=== PATIENT | female | born 1995 | race Native Hawaiian/Other Pacific Islander ===

== ENCOUNTER 2021-09-08 16:52 | Inpatient (IN) | payer OTHER, MEDICAID ==
[2021-09-08] MEDS ORDERED: ONDANSETRON 4 MG/2 ML INJ IV PRN (17:36)
[2021-09-08] MEDS ORDERED: DINOPROSTONE 10 MG VAG SUPP VG ONE ×2 (17:36→22:00)
[2021-09-08] MEDS ORDERED: LIDOCAINE (2%) 20 MG/1 ML VIAL 20 ML MDV INFILTRATI ONE (17:36)
[2021-09-08] MEDS ORDERED: ePHEDrine SULFATE 50 MG/1 ML INJ IV PRN (17:36)
[2021-09-08] MEDS ORDERED: AMPICILLIN/NS 2 GM/100 ML 2 GM/100 ML BAG IV ONE (17:36)
[2021-09-08] MEDS ORDERED: miSOPROStol 200 MCG TAB PR PRN (17:36)
[2021-09-08] MEDS ORDERED: METHYLERGONOVINE MALEATE 0.2 MG/ML VIAL IM PRN (17:36)
[2021-09-08] MEDS ORDERED: BUTORPHANOL 2 MG/1 ML INJ IV PRN (17:36)
[2021-09-08] MEDS ORDERED: ACETAMINOPHEN 325 MG TAB PO PRN (17:36)
[2021-09-08] MEDS ORDERED: TERBUTALINE 1 MG/1 ML INJ SUB-Q PRN (17:36)
[2021-09-08] MEDS ORDERED: CARBOPROST TROMETHAMINE 250 MCG/1 ML INJ IM PRN (17:36)
[2021-09-08] MEDS ORDERED: MINERAL OIL 30 ML ORAL LIQD PO PRN (17:36)
[2021-09-08] MEDS ORDERED: OXYTOCIN 10 UNIT/1 ML INJ IM PRN (17:36)
[2021-09-08] MEDS ORDERED: LOPERAMIDE 2 MG CAP PO PRN (17:36)
--- NOTE | 2021-09-08 17:42 | History and Physical Report ---
History of Present Illness Date of examination: 09/08/21 Date of admission: 09/08/21 16:52 Chief complaint: Pt sent to [facility] for IOL by HOLLY d/t CHARLENE History of present illness: EDC Calculations by LMP: 09/12/2021 Past History : 2 Term Births: 1 Premature Births: 0 Living Children: 1 Para: 1 Mult. Births: 0 Prev : 0 Aborta: 0 Elect. Ab: 0 Spont. Ab: 0 Ectopics: 0 # 1 Delivery date: 02/07/2012 Weeks Gestation: 38 Delivery type: Vaginal Hours of labor: 12 Anesthesia type: epidural Delivery location: [facility] Infant Sex: male weight: 6.25 Name: Dedra Past Medical History: Reviewed history from 10/23/2011 and no changes required: Neurologic Disorder Spina Bifida Occulta Past Surgical History: Reviewed history from 10/23/2011 and no changes required: Negative Past Surgical History Family History Summary: Other Family Member - Has No Family History of Colon Cancer - Entered On: 06/05 Other Family Member - Has Family History of Diabetes - Entered On: 06/23/2021 Other Family Member - Has Family History Breast Cancer - Entered On: 06/23/2021 General Comments - FH: Family History Breast Cancer Family History of Cervical Cancer Family History of Coronary Heart Disease Family History of Colon Cancer Family History of Diabetes Family History of CVA or Stroke Family History of Hypertension No Family History of Ovarvian Cancer No Family History of DVT/PE on OCP Social History: Marital Status: Single Children: 1 Occupation: [employer] Smoking History: Patient has never smoked. 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 Infection History Hx of STD: chlamydia HIV Risk Eval: low risk Hepatitis B Risk Eval: low risk Personal hx. of genital herpes: no Genetic History Congenital Heart Defect: Mom: no Dad: no Cecilia Disease: Mom: no Dad: no Thalassemia Mom: no Dad: no Neural Tube Defect Mom: yes Dad: no Down's Syndrome Mom: no Dad: no Juan-Sachs Mom: no Dad: no Sickle Cell Disease/Trait Mom: no Dad: yes Comments: FOB trat Hemophilia Mom: no Dad: no Muscular Dystrophy Mom: no Dad: no Cystic Fibrosis Mom: no Dad: no Eure Chorea Mom: no Dad: no Mental Retardation Mom: no Dad: no Fragile X Mom: no Dad: no Other Genetic/Chromosomal Disorder Mom: no Dad: no Child w/other defect Mom: no Dad: no Enviromental Exposures Xray Exposure: no Medication, drug, or alcohol use since LMP: yes Chemical/Other Exposure: no Exposure to Cat Liter: no Active Medications (reviewed today): folic acid unspecified unspecified (folic acid) VITAMINS () Current Allergies (reviewed today): No known allergies Past History Past Medical History: other (see HPI) Past Surgical History: other (see HPI) METAPHYSICIAN History: other (see HPI) Family/Genetic History: other (see HPI) - Obstetrical History Expected Date of Delivery: 09/12/21 Actual Gestation: 39 Week(s) 3 Day(s) : 2 Para: 1 Hx # Term Pregnancies: 1 Number of Pregnancies: 0 Spontaneous Abortions: 0 Induced : 0 Number of Living Children: 1 Medications and Allergies Allergies Allergy/AdvReac Type Severity Reaction Status Date / Time No Known Allergies Allergy Unverified 09/08/21 18:20 Active Meds: Active Medications Acetaminophen (Acetaminophen 325 Mg Tab) 650 mg PO Q4H PRN PRN Reason: Pain, Mild (1-3) Butorphanol Tartrate (Butorphanol 2 Mg/1 Ml Inj) 1 mg IV Q2H PRN PRN Reason: Pain, Moderate(4-6) LABOR PAIN Carboprost Tromethamine (Carboprost Tromethamine 250 Mcg/1 Ml Inj) 250 mcg IM ONCE PRN PRN Reason: Uterine Bleeding Dinoprostone (Dinoprostone 10 Mg Vag Supp) 10 mg VG ONCE ONE Stop: 09/08/21 17:37 Ephedrine Sulfate (Ephedrine Sulfate 50 Mg/1 Ml Inj) 10 mg IV Q2M PRN PRN Reason: Hypotension Oxytocin/Sodium Chloride (Pitocin/Ns 30 Unit/500ml) 30 units in 500 mls @ 2 mls/hr IV TITR PONCHO; Protocol Lactated Ringer's (Lactated Ringers) 1,000 mls @ 125 mls/hr IV DIRECT PONCHO Oxytocin/Sodium Chloride (Pitocin/Ns 30 Unit/500ml) 30 units in 500 mls @ 40 mls/hr IV TITR PONCHO; Protocol Ampicillin Sodium (Ampicillin/Ns 2 Gm/100 Ml) 2 gm in 100 mls @ 100 mls/hr IV ONCE ONE; Protocol Stop: 09/08/21 18:35 Loperamide HCl (Loperamide 2 Mg Cap) 2 mg PO ONCE PRN PRN Reason: give with Hemabate Methylergonovine Maleate (Methylergonovine Maleate 0.2 Mg/Ml Vial) 0.2 mg IM ONCE PRN PRN Reason: Uterine Bleeding Mineral Oil (Mineral Oil 30 Ml Oral Liqd) 30 ml PO QHS PRN PRN Reason: Constipation Misoprostol (Misoprostol 200 Mcg Tab) 800 mcg MI ONCE PRN PRN Reason: Uterine Bleeding Ondansetron HCl (Ondansetron 4 Mg/2 Ml Inj) 4 mg IV Q8H PRN PRN Reason: Nausea And Vomiting Oxytocin (Oxytocin 10 Unit/1 Ml Inj) 10 unit IM ONCE PRN PRN Reason: Uterine Bleeding Terbutaline Sulfate (Terbutaline 1 Mg/1 Ml Inj) 0.25 mg SUB-Q ONCE PRN PRN Reason: Hyperstimulation/Hypertonicity Review of Systems All systems: negative - Vital Signs Vital signs: Vital Signs Pulse BP Pulse Ox 96 H 147/77 99 09/08/21 17:36 09/08/21 17:36 09/08/21 17:36 Temp Pulse Resp BP Pulse Ox 96 H 147/77 99 09/08/21 17:36 09/08/21 17:36 09/08/21 17:36 - Physical Exam Breasts: Positive: normal Cardiovascular: Regular rate Lungs: Positive: Normal air movement Abdomen: Positive: normal appearance, soft Genitourinary (Female): Positive: normal external genitalia, normal perenium Vagina: Positive: normal moisture Uterus: Positive: normal size, normal contour Anus/Rectum: Positive: normal perianal skin Extremities: Positive: edema Deep Tendon Reflex Grade: Normal +2 - Obstetrical FHR: category 1 Uterine Contraction Monitor Mode: External Cervical Dilatation: 2 (Anterior) Cervical Effacement Percentage: 30 station: -2 Uterine Contraction Pattern: Irregular Uterine Tone Measurement Phase: Contraction Uterine Contraction Intensity: Mild Results Result Diagrams: 09/08/21 Unknown All other labs normal. Assessment and Plan 26y/o Admitted for IOL d/t GHTN dx'd by [facility]. complicated by morbid obesity. GBS +. Admission orders in EMR. Pt denies CLEARY, visual changes, epigastric pain. Plan discussed for cervidil tonight followed by pitocin tomorrow. all questions addressed. - Patient Problems (1) GBS (group B Streptococcus carrier), +RV culture, currently Current Visit: Yes Status: Acute (2) Gestational HTN Current Visit: Yes Status: Acute Qualifiers: Trimester: third trimester Qualified Code(s): O13.3 - Gestational [-induced] hypertension without significant proteinuria, third tr imester Plan to address problem: b/p's NL since admission no s/s pre-e PIH labs ordered. Will continue to monitor VS and s/s pre-e closely. (3) 39 weeks gestation of Current Visit: Yes Status: Acute (4) Rh negative status during Current Visit: Yes Status: Acute Qualifiers: Trimester: third trimester Qualified Code(s): O26.893 - Other specified related conditions, third trimester; Z67.91 - Unspecified blood type, Rh negative Plan to address problem: rh work up
[2021-09-08] MEDS ORDERED: OXYTOCIN DRIP 30 UNITS/500 ML BAG IV SCH ×2 (18:00)
[2021-09-08 19:40] LABS: Hematocrit 33.2 % (30.3-42.9); Hemoglobin 10.7 gm/dl (10.1-14.3); Mean Corpuscular HGB Conc 32 % (30-34); Mean Corpuscular Volume 78 fl (79-97); Platelet Count 223 K/mm3 (140-440); Red Blood Count 4.25 M/mm3 (3.65-5.03)
[2021-09-08] MEDS ORDERED: AMPICILLIN/NS 1 GM/50 ML 1 GM/50 ML BAG IV SCH (22:00)
[2021-09-09 01:11] LABS: Alanine Aminotransferase 10 units/L (7-56)
[2021-09-09 02:04] LABS: Uric Acid 5.2 mg/dL (3.5-7.6)
--- NOTE | 2021-09-09 07:27 | Progress Note ---
Assessment and Plan A: 26 y.o. @ 40 wks, IOL d/t gHTN. - Patient Problems (1) 39 weeks gestation of Current Visit: Yes Status: Acute Plan to address problem: Continue to monitor status through EFM. (2) GBS (group B Streptococcus carrier), +RV culture, currently Current Visit: Yes Status: Acute Plan to address problem: Antibiotics when in more active labor. (3) Gestational HTN Current Visit: Yes Status: Acute Qualifiers: Trimester: third trimester Qualified Code(s): O13.3 - Gestational [-induced] hypertension without significant proteinuria, third trimester Plan to address problem: Cervidil to be removed ~ 1130am. - May remove sooner based off progress. Continue to monitor blood pressures. Continue to monitor for s/sx of Pre-eclampsia. (4) Rh negative status during Current Visit: Yes Status: Acute Qualifiers: Trimester: third trimester Qualified Code(s): O26.893 - Other specified related conditions, third trimester; Z67.91 - Unspecified blood type, Rh negative Plan to address problem: Cord blood work up post delivery. Subjective - Subjective Date of service: 09/09/21 Principal diagnosis: IUP @ 40 wks d/t gHTN Interval history: Pt denies CLEARY. blurred vision, spots before your eyes, chest pain, upper abdominal pain, and shortness of breath. Patient reports: movement normal, no new complaints, no loss of fluid, no vaginal bleeding, no contractions Objective - Vital Signs Vital Signs: Vital Signs - 12hr 09/08/21 09/08/21 09/08/21 19:31 19:34 19:36 Temperature Pulse Rate 91 H 96 H 97 H Respiratory Rate Blood Pressure 128/76 O2 Sat by Pulse 96 90 97 Oximetry 09/08/21 09/08/21 09/08/21 19:41 19:46 19:50 Temperature Pulse Rate 97 H 101 H 96 H Respiratory Rate Blood Pressure 120/69 O2 Sat by Pulse 97 98 94 Oximetry 09/08/21 09/08/21 09/08/21 19:51 19:56 20:01 Temperature Pulse Rate 95 H 98 H 91 H Respiratory Rate Blood Pressure O2 Sat by Pulse 98 98 98 Oximetry 09/08/21 09/08/21 09/08/21 20:04 20:06 20:11 Temperature Pulse Rate 106 H 107 H 102 H Respiratory Rate Blood Pressure 120/70 O2 Sat by Pulse 88 98 98 Oximetry 09/08/21 09/08/21 09/08/21 20:16 20:19 20:21 Temperature Pulse Rate 100 H 100 H 95 H Respiratory Rate Blood Pressure 123/75 O2 Sat by Pulse 96 94 98 Oximetry 09/08/21 09/08/21 09/08/21 20:26 20:31 20:34 Temperature Pulse Rate 99 H 90 101 H Respiratory Rate Blood Pressure 123/72 O2 Sat by Pulse 98 98 91 Oximetry 09/08/21 09/08/21 09/08/21 20:36 20:41 20:46 Temperature Pulse Rate 110 H 106 H 100 H Respiratory Rate Blood Pressure O2 Sat by Pulse 97 97 97 Oximetry 09/08/21 09/08/21 09/08/21 20:49 20:51 20:56 Temperature Pulse Rate 101 H 105 H 112 H Respiratory Rate Blood Pressure 130/78 O2 Sat by Pulse 93 98 97 Oximetry 09/08/21 09/08/21 09/08/21 21:01 21:04 21:06 Temperature Pulse Rate 107 H 94 H 96 H Respiratory Rate Blood Pressure 129/79 O2 Sat by Pulse 98 92 97 Oximetry 09/08/21 09/08/21 09/08/21 21:11 21:16 21:19 Temperature Pulse Rate 110 H 111 H 101 H Respiratory Rate Blood Pressure 130/74 O2 Sat by Pulse 98 98 94 Oximetry 09/08/21 09/08/21 09/08/21 21:21 21:26 21:27 Temperature Pulse Rate 95 H 94 H Respiratory 18 Rate Blood Pressure O2 Sat by Pulse 98 98 Oximetry 09/08/21 09/08/21 09/08/21 21:31 21:40 21:45 Temperature Pulse Rate 101 H 124 H 101 H Respiratory Rate Blood Pressure O2 Sat by Pulse 98 99 98 Oximetry 09/08/21 09/08/21 09/08/21 21:49 21:50 21:55 Temperature Pulse Rate 89 100 H 106 H Respiratory Rate Blood Pressure 137/71 O2 Sat by Pulse 90 97 97 Oximetry 09/08/21 09/08/21 09/08/21 22:00 22:04 22:05 Temperature Pulse Rate 96 H 95 H 85 Respiratory Rate Blood Pressure 137/67 O2 Sat by Pulse 98 92 94 Oximetry 09/08/21 09/08/21 09/08/21 22:10 22:15 22:19 Temperature Pulse Rate 95 H 100 H 102 H Respiratory Rate Blood Pressure 149/60 O2 Sat by Pulse 97 97 Oximetry 09/08/21 09/08/21 09/08/21 22:20 22:25 22:30 Temperature Pulse Rate 93 H 107 H 109 H Respiratory Rate Blood Pressure O2 Sat by Pulse 97 97 97 Oximetry 09/08/21 09/08/21 09/08/21 22:34 22:35 22:40 Temperature Pulse Rate 102 H 100 H 102 H Respiratory Rate Blood Pressure O2 Sat by Pulse 90 97 98 Oximetry 09/08/21 09/08/21 09/08/21 22:45 22:50 22:55 Temperature Pulse Rate 93 H 97 H 98 H Respiratory Rate Blood Pressure O2 Sat by Pulse 99 98 98 Oximetry 09/08/21 09/08/21 09/08/21 23:00 23:05 23:10 Temperature Pulse Rate 103 H 92 H 94 H Respiratory Rate Blood Pressure O2 Sat by Pulse 98 97 98 Oximetry 09/08/21 09/08/21 09/08/21 23:15 23:20 23:25 Temperature Pulse Rate 91 H 96 H 90 Respiratory Rate Blood Pressure O2 Sat by Pulse 98 99 99 Oximetry 09/08/21 09/08/21 09/08/21 23:30 23:35 23:40 Temperature Pulse Rate 90 90 91 H Respiratory Rate Blood Pressure O2 Sat by Pulse 99 99 97 Oximetry 09/08/21 09/08/21 09/08/21 23:45 23:50 23:55 Temperature Pulse Rate 88 89 92 H Respiratory Rate Blood Pressure O2 Sat by Pulse 97 97 96 Oximetry 09/09/21 09/09/21 09/09/21 00:00 00:05 00:08 Temperature Pulse Rate 86 90 90 Respiratory Rate Blood Pressure O2 Sat by Pulse 97 98 88 Oximetry 09/09/21 09/09/21 09/09/21 00:09 00:10 00:15 Temperature 98 F Pulse Rate 89 88 87 Respiratory 18 Rate Blood Pressure 109/55 O2 Sat by Pulse 97 98 Oximetry 09/09/21 09/09/21 09/09/21 00:20 00:25 00:30 Temperature Pulse Rate 85 83 85 Respiratory Rate Blood Pressure O2 Sat by Pulse 97 97 96 Oximetry 09/09/21 09/09/21 09/09/21 00:35 00:40 00:45 Temperature Pulse Rate 85 85 85 Respiratory Rate Blood Pressure O2 Sat by Pulse 97 97 97 Oximetry 09/09/21 09/09/21 09/09/21 00:50 00:55 01:00 Temperature Pulse Rate 85 85 85 Respiratory Rate Blood Pressure O2 Sat by Pulse 98 97 98 Oximetry 09/09/21 09/09/21 09/09/21 01:05 01:08 01:10 Temperature Pulse Rate 85 92 H 83 Respiratory Rate Blood Pressure 117/56 O2 Sat by Pulse 97 98 Oximetry 09/09/21 09/09/21 09/09/21 01:15 01:20 01:25 Temperature Pulse Rate 82 88 84 Respiratory Rate Blood Pressure O2 Sat by Pulse 99 97 96 Oximetry 09/09/21 09/09/21 09/09/21 01:29 01:30 01:35 Temperature Pulse Rate 82 90 86 Respiratory Rate Blood Pressure O2 Sat by Pulse 94 97 96 Oximetry 09/09/21 09/09/21 09/09/21 01:40 01:45 01:50 Temperature Pulse Rate 82 79 79 Respiratory Rate Blood Pressure O2 Sat by Pulse 96 96 99 Oximetry 09/09/21 09/09/21 09/09/21 01:55 02:00 02:05 Temperature Pulse Rate 82 82 84 Respiratory Rate Blood Pressure O2 Sat by Pulse 98 98 97 Oximetry 09/09/21 09/09/21 09/09/21 02:08 02:10 02:15 Temperature Pulse Rate 78 81 89 Respiratory Rate Blood Pressure 103/55 O2 Sat by Pulse 94 97 98 Oximetry 09/09/21 09/09/21 09/09/21 02:20 02:25 02:30 Temperature Pulse Rate 85 86 90 Respiratory Rate Blood Pressure O2 Sat by Pulse 97 98 99 Oximetry 09/09/21 09/09/21 09/09/21 02:35 02:40 02:45 Temperature Pulse Rate 81 80 83 Respiratory Rate Blood Pressure O2 Sat by Pulse 98 99 98 Oximetry 09/09/21 09/09/21 09/09/21 02:50 02:55 03:00 Temperature Pulse Rate 82 81 77 Respiratory Rate Blood Pressure O2 Sat by Pulse 98 98 98 Oximetry 09/09/21 09/09/21 09/09/21 03:05 03:10 03:15 Temperature Pulse Rate 83 73 83 Respiratory Rate Blood Pressure O2 Sat by Pulse 97 96 97 Oximetry 09/09/21 09/09/21 09/09/21 03:20 03:26 03:30 Temperature Pulse Rate 77 79 79 Respiratory Rate Blood Pressure O2 Sat by Pulse 98 97 97 Oximetry 09/09/21 09/09/21 09/09/21 03:36 03:40 03:46 Temperature Pulse Rate 83 72 73 Respiratory Rate Blood Pressure O2 Sat by Pulse 99 97 97 Oximetry 09/09/21 09/09/21 09/09/21 03:47 03:51 03:55 Temperature Pulse Rate 77 83 78 Respiratory Rate Blood Pressure O2 Sat by Pulse 94 96 98 Oximetry 09/09/21 09/09/21 09/09/21 04:00 04:05 04:10 Temperature Pulse Rate 88 79 85 Respiratory Rate Blood Pressure 114/55 O2 Sat by Pulse 98 98 Oximetry 09/09/21 09/09/21 09/09/21 04:11 04:15 04:21 Temperature 98.8 F Pulse Rate 83 74 80 Respiratory 18 Rate Blood Pressure O2 Sat by Pulse 98 98 98 Oximetry 09/09/21 09/09/21 09/09/21 04:25 04:30 04:36 Temperature Pulse Rate 78 79 78 Respiratory Rate Blood Pressure O2 Sat by Pulse 99 98 98 Oximetry 09/09/21 09/09/21 09/09/21 04:40 04:46 04:50 Temperature Pulse Rate 85 85 77 Respiratory Rate Blood Pressure O2 Sat by Pulse 99 99 98 Oximetry 09/09/21 09/09/21 09/09/21 04:55 05:00 05:06 Temperature Pulse Rate 85 76 79 Respiratory Rate Blood Pressure O2 Sat by Pulse 97 98 99 Oximetry 09/09/21 09/09/21 09/09/21 05:08 05:11 05:33 Temperature Pulse Rate 78 74 85 Respiratory Rate Blood Pressure 108/58 O2 Sat by Pulse 98 99 Oximetry 09/09/21 09/09/21 09/09/21 05:38 05:43 05:48 Temperature Pulse Rate 84 89 81 Respiratory Rate Blood Pressure O2 Sat by Pulse 98 98 99 Oximetry 09/09/21 09/09/21 09/09/21 05:53 05:58 06:03 Temperature Pulse Rate 88 84 81 Respiratory Rate Blood Pressure O2 Sat by Pulse 98 98 97 Oximetry 09/09/21 09/09/21 09/09/21 06:08 06:12 06:13 Temperature Pulse Rate 83 76 81 Respiratory Rate Blood Pressure 125/74 O2 Sat by Pulse 97 94 97 Oximetry 09/09/21 09/09/21 09/09/21 06:18 06:22 06:25 Temperature Pulse Rate 81 84 79 Respiratory Rate Blood Pressure O2 Sat by Pulse 94 96 94 Oximetry 09/09/21 09/09/21 09/09/21 06:27 06:32 06:33 Temperature Pulse Rate 82 77 73 Respiratory Rate Blood Pressure O2 Sat by Pulse 94 96 94 Oximetry 09/09/21 09/09/21 09/09/21 06:37 06:43 06:47 Temperature Pulse Rate 77 78 78 Respiratory Rate Blood Pressure O2 Sat by Pulse 97 95 96 Oximetry 09/09/21 09/09/21 09/09/21 06:53 06:55 06:57 Temperature Pulse Rate 76 81 79 Respiratory Rate Blood Pressure O2 Sat by Pulse 97 94 96 Oximetry 09/09/21 09/09/21 09/09/21 07:02 07:07 07:08 Temperature Pulse Rate 77 86 83 Respiratory Rate Blood Pressure 112/68 O2 Sat by Pulse 98 98 Oximetry 09/09/21 09/09/21 09/09/21 07:12 07:17 07:22 Temperature Pulse Rate 84 79 75 Respiratory Rate Blood Pressure O2 Sat by Pulse 99 98 98 Oximetry - Exam Cardiovascular: Regular rate Lungs: Normal air movement Abdomen: Present: normal appearance, soft Uterus: Present: normal FHR: category 1 Uterine Contraction Monitor Mode: External Uterine Contraction Pattern: Absent - Labs Labs: Abnormal Labs 09/08/21 Unknown WBC 11.1 H MCV 78 L MCH 25 L Laboratory Results - last 24 hr 09/08/21 09/08/21 09/08/21 23:25 23:25 Unknown WBC 11.1 H RBC 4.25 Hgb 10.7 Hct 33.2 MCV 78 L MCH 25 L MCHC 32 RDW 15.0 Plt Count 223 Creatinine 0.6 Estimated GFR > 60 Uric Acid 5.2 AST 10 ALT 10 Lactate Dehydrogenase 137 Syphilis IgG/IgM Ab Nonreactive Blood Type Antibody Screen 09/08/21 Unknown WBC RBC Hgb Hct MCV MCH MCHC RDW Plt Count Creatinine Estimated GFR Uric Acid AST ALT Lactate Dehydrogenase Syphilis IgG/IgM Ab Blood Type O NEGATIVE Antibody Screen Negative
[2021-09-09] MEDS ORDERED: DINOPROSTONE 10 MG VAG SUPP VG ONE (18:41)
--- NOTE | 2021-09-09 18:43 | Progress Note ---
Assessment and Plan - Patient Problems (1) 39 weeks gestation of Current Visit: Yes Status: Acute (2) GBS (group B Streptococcus carrier), +RV culture, currently Current Visit: Yes Status: Acute (3) Gestational HTN Current Visit: Yes Status: Acute Qualifiers: Trimester: third trimester Qualified Code(s): O13.3 - Gestational [-induced] hypertension without significant proteinuria, third trimester Plan to address problem: Allow pm care if FHT's cat 1 and cervidil (4) Rh negative status during Current Visit: Yes Status: Acute Qualifiers: Trimester: third trimester Qualified Code(s): O26.893 - Other specified related conditions, third trimester; Z67.91 - Unspecified blood type, Rh negative Subjective - Subjective Date of service: 09/09/21 Principal diagnosis: IUP @ 39 4/7 wks d/t gHTN Patient reports: movement normal, no new complaints, no loss of fluid, no vaginal bleeding, no contractions Objective - Vital Signs Vital Signs: Vital Signs - 12hr 09/09/21 09/09/21 09/09/21 06:43 06:47 06:53 Temperature Pulse Rate 78 78 76 Respiratory Rate Blood Pressure Blood Pressure [Left] O2 Sat by Pulse 95 96 97 Oximetry 09/09/21 09/09/21 09/09/21 06:55 06:57 07:02 Temperature Pulse Rate 81 79 77 Respiratory Rate Blood Pressure Blood Pressure [Left] O2 Sat by Pulse 94 96 98 Oximetry 09/09/21 09/09/21 09/09/21 07:07 07:08 07:12 Temperature Pulse Rate 86 83 84 Respiratory Rate Blood Pressure 112/68 Blood Pressure [Left] O2 Sat by Pulse 98 99 Oximetry 09/09/21 09/09/21 09/09/21 07:17 07:22 07:27 Temperature Pulse Rate 79 75 77 Respiratory Rate Blood Pressure Blood Pressure [Left] O2 Sat by Pulse 98 98 98 Oximetry 09/09/21 09/09/21 09/09/21 07:32 07:37 07:42 Temperature Pulse Rate 80 77 78 Respiratory Rate Blood Pressure Blood Pressure [Left] O2 Sat by Pulse 99 98 99 Oximetry 09/09/21 09/09/21 09/09/21 07:48 07:52 07:57 Temperature Pulse Rate 72 71 74 Respiratory Rate Blood Pressure Blood Pressure [Left] O2 Sat by Pulse 99 98 98 Oximetry 09/09/21 09/09/21 09/09/21 08:02 08:07 08:08 Temperature Pulse Rate 83 69 74 Respiratory Rate Blood Pressure 115/61 Blood Pressure [Left] O2 Sat by Pulse 98 96 Oximetry 09/09/21 09/09/21 09/09/21 08:12 08:17 08:22 Temperature Pulse Rate 73 76 72 Respiratory Rate Blood Pressure Blood Pressure [Left] O2 Sat by Pulse 97 97 97 Oximetry 09/09/21 09/09/21 09/09/21 08:28 08:32 08:38 Temperature Pulse Rate 67 82 73 Respiratory Rate Blood Pressure Blood Pressure [Left] O2 Sat by Pulse 96 98 97 Oximetry 09/09/21 09/09/21 09/09/21 08:42 08:47 08:53 Temperature Pulse Rate 71 74 77 Respiratory Rate Blood Pressure Blood Pressure [Left] O2 Sat by Pulse 98 98 98 Oximetry 09/09/21 09/09/21 09/09/21 08:58 09:03 09:07 Temperature Pulse Rate 74 77 76 Respiratory Rate Blood Pressure Blood Pressure [Left] O2 Sat by Pulse 98 98 96 Oximetry 09/09/21 09/09/21 09/09/21 09:08 09:13 09:18 Temperature Pulse Rate 85 77 75 Respiratory Rate Blood Pressure 112/61 Blood Pressure [Left] O2 Sat by Pulse 98 98 Oximetry 09/09/21 09/09/21 09/09/21 09:23 09:28 09:33 Temperature Pulse Rate 77 82 72 Respiratory Rate Blood Pressure Blood Pressure [Left] O2 Sat by Pulse 98 98 98 Oximetry 09/09/21 09/09/21 09/09/21 09:38 09:43 09:48 Temperature Pulse Rate 80 74 65 Respiratory Rate Blood Pressure Blood Pressure [Left] O2 Sat by Pulse 96 98 99 Oximetry 09/09/21 09/09/21 09/09/21 09:53 09:58 10:02 Temperature Pulse Rate 73 73 65 Respiratory Rate Blood Pressure Blood Pressure [Left] O2 Sat by Pulse 99 100 98 Oximetry 09/09/21 09/09/21 09/09/21 10:08 10:13 10:18 Temperature Pulse Rate 79 81 79 Respiratory Rate Blood Pressure 111/68 Blood Pressure [Left] O2 Sat by Pulse 93 98 98 Oximetry 09/09/21 09/09/21 09/09/21 10:23 10:28 10:33 Temperature Pulse Rate 81 67 71 Respiratory Rate Blood Pressure Blood Pressure [Left] O2 Sat by Pulse 98 99 98 Oximetry 09/09/21 09/09/21 09/09/21 10:38 10:43 11:43 Temperature 98.4 F Pulse Rate 77 79 88 Respiratory 18 Rate Blood Pressure Blood Pressure 135/84 [Left] O2 Sat by Pulse 98 98 Oximetry 09/09/21 11:44 Temperature Pulse Rate 88 Respiratory Rate Blood Pressure 135/84 Blood Pressure [Left] O2 Sat by Pulse Oximetry - Exam Breasts: deferred Lungs: Normal air movement Abdomen: Present: soft, other (obese) Vulva: both: normal Uterus: Present: fundal height above umbilicus. Absent: tenderness FHR: category 1 Uterine Contraction Monitor Mode: External Cervical Dilatation: 1 Cervical Effacement Percentage: 30 station: -3 Uterine Contraction Pattern: Absent - Labs Labs: Abnormal Labs 09/08/21 Unknown WBC 11.1 H MCV 78 L MCH 25 L Laboratory Results - last 24 hr 09/08/21 09/08/21 09/08/21 23:25 23:25 Unknown WBC 11.1 H RBC 4.25 Hgb 10.7 Hct 33.2 MCV 78 L MCH 25 L MCHC 32 RDW 15.0 Plt Count 223 Creatinine 0.6 Estimated GFR > 60 Uric Acid 5.2 AST 10 ALT 10 Lactate Dehydrogenase 137 Syphilis IgG/IgM Ab Nonreactive Blood Type Antibody Screen 09/08/21 Unknown WBC RBC Hgb Hct MCV MCH MCHC RDW Plt Count Creatinine Estimated GFR Uric Acid AST ALT Lactate Dehydrogenase Syphilis IgG/IgM Ab Blood Type O NEGATIVE Antibody Screen Negative
--- NOTE | 2021-09-10 10:05 | Progress Note ---
Assessment and Plan - Patient Problems (1) 39 weeks gestation of Current Visit: Yes Status: Acute (2) GBS (group B Streptococcus carrier), +RV culture, currently Current Visit: Yes Status: Acute Plan to address problem: -start antibx (3) Gestational HTN Current Visit: Yes Status: Acute Qualifiers: Trimester: third trimester Qualified Code(s): O13.3 - Gestational [-induced] hypertension without significant proteinuria, third t rimester Plan to address problem: -cont with serial IOL -bp stable at this time (4) Rh negative status during Current Visit: Yes Status: Acute Qualifiers: Trimester: third trimester Qualified Code(s): O26.893 - Other specified related conditions, third trimester; Z67.91 - Unspecified blood type, Rh negative Subjective - Subjective Date of service: 09/10/21 (late entry) Principal diagnosis: IUP @ 39 5/7 wks d/t gHTN Interval history: Pt w/o c/o this am. cx 2-350/-3. will proceed with allowing pericare care today and will then proceed with pitocin iol. plan of care d/w pt and questions were addressed and answered. Patient reports: movement normal, no new complaints, no loss of fluid, no vaginal bleeding, no contractions Objective - Vital Signs Vital Signs: Vital Signs - 12hr 09/09/21 09/09/21 09/09/21 22:05 22:10 22:15 Temperature Pulse Rate 93 H 85 107 H Blood Pressure O2 Sat by Pulse 99 98 99 Oximetry O2 Sat by Pulse Oximetry [ Posterior Bilateral Throughout] 09/09/21 09/09/21 09/09/21 22:20 22:25 22:30 Temperature Pulse Rate 84 85 105 H Blood Pressure O2 Sat by Pulse 99 99 99 Oximetry O2 Sat by Pulse Oximetry [ Posterior Bilateral Throughout] 09/09/21 09/09/21 09/09/21 22:35 22:40 22:45 Temperature Pulse Rate 83 92 H 84 Blood Pressure O2 Sat by Pulse 99 99 99 Oximetry O2 Sat by Pulse Oximetry [ Posterior Bilateral Throughout] 09/09/21 09/09/21 09/09/21 22:50 22:55 23:00 Temperature Pulse Rate 89 92 H 87 Blood Pressure O2 Sat by Pulse 98 99 99 Oximetry O2 Sat by Pulse Oximetry [ Posterior Bilateral Throughout] 09/09/21 09/09/21 09/09/21 23:05 23:10 23:15 Temperature Pulse Rate 85 80 87 Blood Pressure O2 Sat by Pulse 98 97 98 Oximetry O2 Sat by Pulse Oximetry [ Posterior Bilateral Throughout] 09/09/21 09/09/21 09/09/21 23:20 23:25 23:30 Temperature Pulse Rate 89 86 89 Blood Pressure O2 Sat by Pulse 98 98 97 Oximetry O2 Sat by Pulse Oximetry [ Posterior Bilateral Throughout] 09/09/21 09/09/21 09/09/21 23:35 23:40 23:45 Temperature Pulse Rate 87 87 87 Blood Pressure O2 Sat by Pulse 97 98 97 Oximetry O2 Sat by Pulse Oximetry [ Posterior Bilateral Throughout] 09/09/21 09/09/21 09/10/21 23:50 23:55 00:00 Temperature Pulse Rate 81 83 84 Blood Pressure O2 Sat by Pulse 98 98 98 Oximetry O2 Sat by Pulse Oximetry [ Posterior Bilateral Throughout] 09/10/21 09/10/21 09/10/21 00:05 00:10 00:15 Temperature Pulse Rate 78 75 89 Blood Pressure O2 Sat by Pulse 99 97 98 Oximetry O2 Sat by Pulse Oximetry [ Posterior Bilateral Throughout] 09/10/21 09/10/21 09/10/21 00:20 00:25 00:30 Temperature Pulse Rate 81 81 83 Blood Pressure O2 Sat by Pulse 98 98 98 Oximetry O2 Sat by Pulse Oximetry [ Posterior Bilateral Throughout] 09/10/21 09/10/21 09/10/21 00:35 00:40 00:45 Temperature Pulse Rate 83 81 79 Blood Pressure O2 Sat by Pulse 99 98 97 Oximetry O2 Sat by Pulse Oximetry [ Posterior Bilateral Throughout] 09/10/21 09/10/21 09/10/21 00:50 00:55 01:00 Temperature Pulse Rate 80 87 75 Blood Pressure O2 Sat by Pulse 99 99 99 Oximetry O2 Sat by Pulse Oximetry [ Posterior Bilateral Throughout] 09/10/21 09/10/21 09/10/21 01:05 01:10 01:15 Temperature Pulse Rate 82 82 86 Blood Pressure O2 Sat by Pulse 98 98 99 Oximetry O2 Sat by Pulse Oximetry [ Posterior Bilateral Throughout] 09/10/21 09/10/21 09/10/21 01:20 01:25 01:30 Temperature Pulse Rate 81 80 83 Blood Pressure O2 Sat by Pulse 98 98 98 Oximetry O2 Sat by Pulse Oximetry [ Posterior Bilateral Throughout] 09/10/21 09/10/21 09/10/21 01:35 01:40 01:45 Temperature Pulse Rate 81 102 H 87 Blood Pressure O2 Sat by Pulse 98 99 96 Oximetry O2 Sat by Pulse Oximetry [ Posterior Bilateral Throughout] 09/10/21 09/10/21 09/10/21 01:50 01:55 02:00 Temperature Pulse Rate 78 82 83 Blood Pressure O2 Sat by Pulse 97 97 97 Oximetry O2 Sat by Pulse Oximetry [ Posterior Bilateral Throughout] 09/10/21 09/10/21 09/10/21 02:05 02:10 02:15 Temperature Pulse Rate 79 83 84 Blood Pressure O2 Sat by Pulse 98 98 97 Oximetry O2 Sat by Pulse Oximetry [ Posterior Bilateral Throughout] 09/10/21 09/10/21 09/10/21 02:20 02:25 02:30 Temperature Pulse Rate 77 84 82 Blood Pressure O2 Sat by Pulse 97 98 97 Oximetry O2 Sat by Pulse Oximetry [ Posterior Bilateral Throughout] 09/10/21 09/10/21 09/10/21 02:35 02:40 02:45 Temperature Pulse Rate 74 78 84 Blood Pressure O2 Sat by Pulse 97 98 98 Oximetry O2 Sat by Pulse Oximetry [ Posterior Bilateral Throughout] 09/10/21 09/10/21 09/10/21 02:50 02:55 03:00 Temperature Pulse Rate 86 84 78 Blood Pressure O2 Sat by Pulse 98 98 98 Oximetry O2 Sat by Pulse Oximetry [ Posterior Bilateral Throughout] 09/10/21 09/10/21 09/10/21 03:05 03:10 03:15 Temperature Pulse Rate 80 80 81 Blood Pressure O2 Sat by Pulse 98 98 97 Oximetry O2 Sat by Pulse Oximetry [ Posterior Bilateral Throughout] 09/10/21 09/10/21 09/10/21 03:20 03:25 03:30 Temperature Pulse Rate 80 81 78 Blood Pressure O2 Sat by Pulse 98 97 97 Oximetry O2 Sat by Pulse Oximetry [ Posterior Bilateral Throughout] 09/10/21 09/10/21 09/10/21 03:35 03:40 03:45 Temperature Pulse Rate 80 79 77 Blood Pressure O2 Sat by Pulse 97 97 98 Oximetry O2 Sat by Pulse Oximetry [ Posterior Bilateral Throughout] 09/10/21 09/10/21 09/10/21 03:50 03:55 04:00 Temperature Pulse Rate 100 H 76 80 Blood Pressure O2 Sat by Pulse 98 98 98 Oximetry O2 Sat by Pulse Oximetry [ Posterior Bilateral Throughout] 09/10/21 09/10/21 09/10/21 04:05 04:10 04:15 Temperature Pulse Rate 75 83 74 Blood Pressure O2 Sat by Pulse 98 98 97 Oximetry O2 Sat by Pulse Oximetry [ Posterior Bilateral Throughout] 09/10/21 09/10/21 09/10/21 04:20 04:22 04:25 Temperature Pulse Rate 72 78 75 Blood Pressure 122/59 O2 Sat by Pulse 99 98 Oximetry O2 Sat by Pulse Oximetry [ Posterior Bilateral Throughout] 09/10/21 09/10/21 09/10/21 04:30 04:35 04:40 Temperature Pulse Rate 82 74 73 Blood Pressure O2 Sat by Pulse 98 98 98 Oximetry O2 Sat by Pulse Oximetry [ Posterior Bilateral Throughout] 09/10/21 09/10/21 09/10/21 04:45 04:50 04:55 Temperature Pulse Rate 76 70 79 Blood Pressure O2 Sat by Pulse 98 98 98 Oximetry O2 Sat by Pulse Oximetry [ Posterior Bilateral Throughout] 09/10/21 09/10/21 09/10/21 05:00 05:05 05:10 Temperature Pulse Rate 78 75 79 Blood Pressure O2 Sat by Pulse 98 97 99 Oximetry O2 Sat by Pulse Oximetry [ Posterior Bilateral Throughout] 09/10/21 09/10/21 09/10/21 05:15 05:20 05:25 Temperature Pulse Rate 74 73 70 Blood Pressure O2 Sat by Pulse 98 98 99 Oximetry O2 Sat by Pulse Oximetry [ Posterior Bilateral Throughout] 09/10/21 09/10/21 09/10/21 05:30 05:35 05:40 Temperature Pulse Rate 70 76 79 Blood Pressure O2 Sat by Pulse 98 99 98 Oximetry O2 Sat by Pulse Oximetry [ Posterior Bilateral Throughout] 09/10/21 09/10/21 09/10/21 05:45 05:50 05:55 Temperature Pulse Rate 59 L 79 67 Blood Pressure O2 Sat by Pulse 100 97 98 Oximetry O2 Sat by Pulse Oximetry [ Posterior Bilateral Throughout] 09/10/21 09/10/21 09/10/21 06:00 06:05 06:10 Temperature Pulse Rate 77 82 89 Blood Pressure O2 Sat by Pulse 98 100 99 Oximetry O2 Sat by Pulse Oximetry [ Posterior Bilateral Throughout] 09/10/21 09/10/21 09/10/21 06:28 06:33 06:38 Temperature Pulse Rate 90 91 H 85 Blood Pressure O2 Sat by Pulse 99 99 99 Oximetry O2 Sat by Pulse Oximetry [ Posterior Bilateral Throughout] 09/10/21 09/10/21 09/10/21 06:43 06:48 06:53 Temperature Pulse Rate 90 82 78 Blood Pressure O2 Sat by Pulse 99 98 99 Oximetry O2 Sat by Pulse Oximetry [ Posterior Bilateral Throughout] 09/10/21 09/10/21 09/10/21 06:58 07:03 07:08 Temperature Pulse Rate 82 79 74 Blood Pressure O2 Sat by Pulse 98 99 99 Oximetry O2 Sat by Pulse Oximetry [ Posterior Bilateral Throughout] 09/10/21 09/10/21 09/10/21 07:13 07:18 07:23 Temperature Pulse Rate 78 75 73 Blood Pressure O2 Sat by Pulse 99 99 98 Oximetry O2 Sat by Pulse Oximetry [ Posterior Bilateral Throughout] 09/10/21 09/10/21 09/10/21 07:27 07:28 07:33 Temperature Pulse Rate 76 81 Blood Pressure O2 Sat by Pulse 98 99 Oximetry O2 Sat by Pulse 98 Oximetry [ Posterior Bilateral Throughout] 09/10/21 09/10/21 09/10/21 07:38 07:43 07:48 Temperature Pulse Rate 76 94 H 80 Blood Pressure O2 Sat by Pulse 98 99 98 Oximetry O2 Sat by Pulse Oximetry [ Posterior Bilateral Throughout] 09/10/21 09/10/21 09/10/21 07:53 07:57 07:58 Temperature Pulse Rate 75 84 77 Blood Pressure 116/60 O2 Sat by Pulse 99 98 Oximetry O2 Sat by Pulse Oximetry [ Posterior Bilateral Throughout] 09/10/21 09/10/21 09/10/21 08:01 08:03 08:08 Temperature 98.3 F Pulse Rate 72 66 Blood Pressure O2 Sat by Pulse 98 100 Oximetry O2 Sat by Pulse Oximetry [ Posterior Bilateral Throughout] 09/10/21 09/10/21 09/10/21 08:13 08:18 08:23 Temperature Pulse Rate 69 73 69 Blood Pressure O2 Sat by Pulse 100 99 98 Oximetry O2 Sat by Pulse Oximetry [ Posterior Bilateral Throughout] 09/10/21 09/10/21 09/10/21 08:28 08:33 08:38 Temperature Pulse Rate 71 74 75 Blood Pressure O2 Sat by Pulse 98 98 99 Oximetry O2 Sat by Pulse Oximetry [ Posterior Bilateral Throughout] 09/10/21 09/10/21 09/10/21 08:43 08:48 08:53 Temperature Pulse Rate 104 H 87 81 Blood Pressure O2 Sat by Pulse 98 98 98 Oximetry O2 Sat by Pulse Oximetry [ Posterior Bilateral Throughout] 09/10/21 09/10/21 09/10/21 08:56 09:04 09:06 Temperature Pulse Rate 73 81 85 Blood Pressure 130/75 O2 Sat by Pulse 85 0 L Oximetry O2 Sat by Pulse Oximetry [ Posterior Bilateral Throughout] - Exam FHR: category 1 (difficult to trace at times due to body habitus) Cervical Dilatation: 2.5 Cervical Effacement Percentage: 50 station: -3 Uterine Contraction Pattern: Absent - Labs Labs: Abnormal Labs 09/08/21 Unknown WBC 11.1 H MCV 78 L MCH 25 L
[2021-09-10] MEDS: LACTATED RINGERS 1,000 ML IV SCH ×2 (10:42→11:30)
[2021-09-10] MEDS ORDERED: AMPICILLIN/NS 2 GM/100 ML 2 GM/100 ML BAG IV ONE (16:56)
[2021-09-10] MEDS ORDERED: NALOXONE 0.4 MG/1 ML INJ IV PRN (18:42)
[2021-09-10] MEDS ORDERED: ePHEDrine SULFATE 50 MG/1 ML INJ IV PRN (18:42)
--- NOTE | 2021-09-10 18:42 | Anesthesia Day of Surgery ---
Anesthesia Day of Surgery - Day of Surgery Patient Examined: Yes Patient H&P Reviewed: Yes Patient is NPO: Yes Beta Blockers: No Cardiac Clearance: No Pulmonary Clearance: No Jeffrey's Test: N/A
--- NOTE | 2021-09-10 18:42 | Anesthesia Consultation ---
Anesthesia Consult and Med Hx - Airway Anesthetic Teeth Evaluation: Good ROM Head & Neck: Adequate Mental/Hyoid Distance: Adequate Mallampati Class: Class I Intubation Access Assessment: Probably Good - Pulmonary Exam CTA: Yes - Cardiac Exam Cardiac Exam: RRR - Pre-Operative Health Status ASA Pre-Surgery Classification: ASA2 Proposed Anesthetic Plan: Epidural - Pulmonary Hx Smoking: No Hx Asthma: No COPD: No Hx Pneumonia: No - Cardiovascular System Hx Hypertension: No - Central Nervous System Hx Seizures: No Hx Psychiatric Problems: No - Endocrine Hx Renal Disease: No Hx End Stage Renal Disease: No Hx Hypothyroidism: No Hx Hyperthyroidism: No - Hematic Hx Anemia: No Hx Sickle Cell Disease: No - Other Systems Hx Alcohol Use: Yes
[2021-09-10] MEDS ORDERED: LIDOCAINE MPF (2%) 20 MG/1 ML VIAL 5 ML ONE (18:44)
--- NOTE | 2021-09-10 19:24 | Progress Note ---
Regional Anesthesia Block - Regional Anesthesia Block Start Time: 18:57 Stop Time: 19:08 Performed By:: RACHELLE ELAINE Procedure: L23 prep and drape NSF, 2 attempts, first at L34, SORAIDA saline and air at 8cm, cath to 12 cm at skin. Neg test, sterile dressing tolerated well
[2021-09-10] MEDS: fentaNYL-BUPIV 2 MCG/ML-0.125% 200 MCG/100 ML BAG EPIDURAL SCH (20:21)
--- NOTE | 2021-09-10 23:15 | Procedure Note ---
OB Delivery Note - Delivery Date of Delivery: 09/10/21 Surgeon: GARCIA BRUCE Estimated blood loss: 300cc - Vaginal Delivery presentation: vertex Delivery position: OA Intrapartum events: mult.variable deceleratio, other(please specify) (nuchal cord x2 easily reduced with delivery of head) Delivery induction: cervidil Delivery augmentation: pitocin Delivery monitor: external FHT, external uterine Route of delivery: Delivery placenta: spontaneous Delivery cord: nuchal cord (times two loose easily reduced), 3 umbilical vessels Episiotomy: none Delivery laceration: 2nd degree (bilateral periurethral and perineal) Delivery repair: vicryl (3-0) Anesthesia: epidural Delivery comments: Delivery as above was not complicated. ant shoulder and rest of delivered w/o difficulty. placed on maternal abdomen. Cord clamped x2 and cut x1. lacerations as above. and repaired in usual fashion. Excellent hemostasis was noted. Mother and infant stable in LDR. EBL 300ml - A at 1 minute: 9 at 5 minutes: 9 Gender: Female (7lbs 9oz)
[2021-09-11] MEDS ORDERED: LANOLIN/ZINC/DIMETHICONE (LANSINOH) 7 GM TP PRN (02:13)
[2021-09-11] MEDS ORDERED: WITCH HAZEL/ GLYCERIN PAD TP PRN (02:13)
[2021-09-11] MEDS ORDERED: PROMETHAZINE 25 MG RECT SUPP PR PRN (02:13)
[2021-09-11] MEDS ORDERED: MAGNESIUM HYDROXIDE (MOM) ORAL LIQD UDC PO PRN (02:13)
[2021-09-11] MEDS ORDERED: PROMETHAZINE 25 MG TAB PO PRN (02:13)
[2021-09-11] MEDS ORDERED: diphenhydrAMINE 25 MG CAP PO PRN (02:13)
[2021-09-11] MEDS ORDERED: HYDROcodone/ACETAMINOPHEN 5-325 MG TAB PO PRN (02:13)
[2021-09-11] MEDS ORDERED: ONDANSETRON 4 MG/2 ML INJ IV PRN (02:13)
[2021-09-11] MEDS: IBUPROFEN 800 MG TAB PO SCH ×4 (02:34→18:10)
[2021-09-11] MEDS: fentaNYL-BUPIV 2 MCG/ML-0.125% 200 MCG/100 ML BAG EPIDURAL SCH (04:30)
--- NOTE | 2021-09-11 09:45 | Progress Note ---
Assessment and Plan - Patient Problems (1) 39 weeks gestation of Current Visit: Yes Status: Acute (2) GBS (group B Streptococcus carrier), +RV culture, currently Current Visit: Yes Status: Acute (3) Gestational HTN Current Visit: Yes Status: Acute Qualifiers: Trimester: third trimester Qualified Code(s): O13.3 - Gestational [-induced] hypertension without significant proteinuria, third trimester Plan to address problem: -Routine care -Will discharge home day #2 if remains afebrile vital signs stable -We will continue to monitor blood pressures closely no blood pressure medication started at this time (4) Rh negative status during Current Visit: Yes Status: Acute Qualifiers: Trimester: third trimester Qualified Code(s): O26.893 - Other specified related conditions, third trimester; Z67.91 - Unspecified blood type, Rh negative (5) (normal spontaneous vaginal delivery) Current Visit: Yes Status: Acute Plan to address problem: -Routine care -Will discharge home day #2 if remains afebrile vital signs stable -We will continue to monitor blood pressures closely no blood pressure medication started at this time Subjective - Subjective Date of service: 09/11/21 Principal diagnosis: PPD#1 s/p Interval history: Patient doing well this morning. Pain well controlled. She is without any headaches or blurry vision. She has no signs or symptoms of preeclampsia at this time. We will continue to monitor blood pressures closely. No blood pressure medicines have been started at this time. Patient reports: appetite normal, voiding normally, pain well controlled, ambulating normally, no dizzy ambulation [place]: doing well, nursing well Objective - Vital Signs Latest vital signs: Vital Signs Temp Pulse Resp BP Pulse Ox Pulse Ox 09/11/21 04:23 98 09/11/21 02:53 98.2 F 63 20 115/59 100 09/10/21 23:19 94 H 115/58 09/10/21 23:09 107 H 98 09/10/21 23:04 104 H 150/58 09/10/21 23:03 103 H 98 09/10/21 22:59 103 H 99 09/10/21 22:54 101 H 98 09/10/21 22:49 100 H 137/79 100 09/10/21 22:43 99 H 97 09/10/21 22:39 86 99 09/10/21 22:37 93 H 113/74 09/10/21 22:35 136 H 205/116 09/10/21 22:34 83 97 09/10/21 22:33 142 H 94 09/10/21 22:29 81 96 09/10/21 22:19 86 128/70 09/10/21 22:04 85 129/76 09/10/21 21:49 78 100/55 09/10/21 21:34 76 109/58 09/10/21 21:19 82 104/58 09/10/21 21:04 80 108/58 09/10/21 20:49 80 108/57 09/10/21 20:34 77 119/59 09/10/21 20:18 81 130/75 09/10/21 20:12 80 119/73 09/10/21 20:07 83 116/65 09/10/21 20:03 83 126/73 09/10/21 19:57 85 123/72 09/10/21 19:53 84 128/72 09/10/21 19:47 87 121/71 09/10/21 19:43 88 133/72 09/10/21 19:37 98 H 127/75 09/10/21 19:32 100 H 129/73 09/10/21 19:28 100 H 137/80 09/10/21 19:22 98.2 F 101 H 125/68 09/10/21 19:17 87 127/62 09/10/21 19:15 89 136/79 09/10/21 19:13 98 H 133/90 09/10/21 19:11 97 H 131/91 09/10/21 19:09 105 H 126/84 09/10/21 19:07 95 H 135/85 09/10/21 19:05 136/90 09/10/21 19:03 103 H 136/86 09/10/21 19:01 93 H 133/86 09/10/21 19:00 98 09/10/21 18:59 97 H 131/83 09/10/21 18:57 92 H 137/84 09/10/21 18:55 98 H 139/86 09/10/21 18:53 93 H 132/82 09/10/21 18:51 89 126/74 09/10/21 18:49 95 H 133/67 08/06/22 18:29 88 139/84 09/10/21 17:29 100 H 134/91 09/10/21 16:32 16 09/10/21 16:29 79 128/64 09/10/21 15:30 98.0 F 09/10/21 15:29 76 119/67 09/10/21 14:54 75 104/60 09/10/21 13:29 89 134/88 09/10/21 12:29 86 126/61 09/10/21 11:34 98.6 F 09/10/21 11:30 93 H 108/54 09/10/21 10:31 115 H 129/73 Intake and Output 09/10/21 09/11/21 09/11/21 22:59 06:59 14:59 Intake Total 58.733 240 Output Total 300 Balance -241.267 240 Intake: IV 58.733 PITOCin/NS 30 UNIT/500ML 58.733 30 units In 500 ml @ 2 mls/hr IV TITR PONCHO Rx#: [id number] Oral 240 Output: Urine 300 Indwelling Catheter 150 Uretheral (Miller) 150 Other: Total, Intake Amount 240 Total, Output Amount 150 # Voids Void 1 Estimated Blood Loss 350 - Exam Breasts: Present: normal Cardiovascular: Present: Normal S1, Normal S2 Lungs: Present: Clear to auscultation, Normal air movement Abdomen: Present: normal appearance, soft, normal bowel sounds. Absent: distention, tenderness, guarding Uterus: Present: normal, firm, fundal height below umbilicus Extremities: Absent: normal, tenderness, edema Deep Tendon Reflex Grade: Normal +2
[2021-09-11 15:56] LABS: Hematocrit 30.6 % (30.3-42.9); Hemoglobin 9.9 gm/dl (10.1-14.3)
[2021-09-12] MEDS: IBUPROFEN 800 MG TAB PO SCH ×3 (00:35→15:31)
[2021-09-12] MEDS ORDERED: TETANUS,DIPH,PERTUSS(ACELL) VACCINE 0.5 ML SYRINGE IM ONE (06:00)
--- NOTE | 2021-09-12 08:24 | Discharge Summary ---
Providers - Providers Date of Admission: 09/08/21 16:52 Date of discharge: 09/12/21 Attending physician: NIRMALA RAM MD Primary care physician: NIRMALA RAM MD Hospitalization Reason for admission: induction of labor Delivery: Episiotomy: none Laceration: 2nd degree Other procedures: none complications: none Discharge diagnosis: IUP at term delivered baby: female Pertinent studies: Pt denies CLEARY, blurred vision, spots before her eyes, chest pain, shortness of breath, and upper abdominal pain. We discussed how to take a proper blood pressure and when to call the absorption operator provider. Pt is to call the absorption operator provider if she has a blood pressure of 140/90 or greater, and/or has the following symptoms: headaches, spots before her eyes, chest pain, feelings like she can not catch her breath, blurred vision, and severe pain in her stomach. We also discussed that she should come to the office in 1 week so that we can check her blood pressure. Condition at discharge: Good Disposition: 01 HOME / SELF CARE / HOMELESS Plan - Discharge Medications Prescriptions: Docusate Sodium [Colace] 100 mg PO BID PRN #60 capsule PRN Reason: Constipation Ferrous Sulfate [Feosol 325 MG tab] 325 mg PO QDAY #30 tablet - Provider Discharge Summary Activity: routine, no sex for 6 weeks, no heavy lifting 4 weeks, no strenuous exercise Diet: routine Instructions: routine Additional instructions: [] Smoking cessation referral if applicable(refer to patient education folder for contact #) [] Refer to [facility] Booklet Call your doctor immediately for: * Fever > 100.5 * Heavy vaginal bleeding ( >1 pad per hour) * Severe persistent headache * Shortness of breath * Reddened, hot, painful area to leg or breast * Drainage or odor from incision. * Keep incision clean and dry at all times and follow doctor's instructions regarding bathing/showering - Follow up plan Follow up: NIRMALA RAM MD [Primary Care Provider] - 7 Days (- Congratulations on the of your baby girl! - Thank you for allowing us to take care of you! - Please schedule your blood pressure check in the office in 1 week. - Please call the absorption operator provider if you have a blood pressure of 140/90 or greater, and/or have the following symptoms: headaches, spots before her eyes, chest pain, feelings like she can not catch her breath, blurred vision, and severe pain in her stomach. - Should you have any questions or concerns after discharge, please do not hesitate to call the office at . )
[2021-09-12 16:02] VITALS: BP 140/81
== END 2021-09-12 18:15 | disposition home or self-care (01) | DRG 805 ==
LOC: LD 16:52 → OB 09-11 01:57
PROVIDERS: ADMIT Student in an Organized Health Care Education/Training Program; ATTEND Student in an Organized Health Care Education/Training Program
PROC: 10E0XZZ Delivery of Products of Conception, External Approach (ICD-10-PCS; principal; 2021-09-10)
PROC: 0KQM0ZZ Repair Perineum Muscle, Open Approach (ICD-10-PCS; 2021-09-10)
PROC: 3E0P7VZ Introduction of Hormone into Female Reproductive, Via Natural or Artificial Opening (ICD-10-PCS; 2021-09-10)
PROC: 3E0234Z Introduction of Serum, Toxoid and Vaccine into Muscle, Percutaneous Approach (ICD-10-PCS; 2021-09-11)
PROC: 3E0234Z Introduction of Serum, Toxoid and Vaccine into Muscle, Percutaneous Approach (ICD-10-PCS; 2021-09-12)
DX: O13.4 Gestational [pregnancy-induced] hypertension without significant proteinuria, complicating childbirth (principal); U07.1 COVID-19; Z37.0 Single live birth; O98.52 Other viral diseases complicating childbirth; O70.1 Second degree perineal laceration during delivery; Z3A.39 39 weeks gestation of pregnancy; Z23 Encounter for immunization; O99.824 Streptococcus B carrier state complicating childbirth; O26.893 Other specified pregnancy related conditions, third trimester; Z67.41 Type O blood, Rh negative; O76 Abnormality in fetal heart rate and rhythm complicating labor and delivery; O69.81X0 Labor and delivery complicated by cord around neck, without compression, not applicable or unspecified
CPT/HCPCS: 36415; 59200; 82565; 83615; 84450; 84460; 84550; 85014; 85018; 85027; 85461; 86592; 86850; 86900; 86901; 96360; 96365; 96367; G0378; J3490; J0290; J0595; J2590; J2790; J7120; U0003